=== PATIENT | male | born 1990 | race Caucasian/White ===

== ENCOUNTER 2019-07-04 15:33 | Emergency (ER) | payer OTHER ==
[~2019-07-04] VITALS: Ht 175.3 cm; Wt 79.8 kg
[2019-07-04] MEDS ORDERED: GABAPENTIN100 M2 (16:31)
== END 2019-07-04 17:54 | disposition home or self-care (01) ==
LOC: ER 15:33
DX: M54.89 Other dorsalgia (principal)

== ENCOUNTER 2019-09-19 15:45 | Outpatient (CLI) | payer OTHER ==
[~2019-09-19 15:45] MED LIST: GABAPENTIN100 M2
== END 2019-09-19 15:48 | disposition home or self-care (01) ==
LOC: RAD 15:45
PROVIDERS: ATTEND Internal Medicine
DX: M54.89 Other dorsalgia (principal)

== ENCOUNTER → 2019-09-21 09:14 | Outpatient (CLI) | payer OTHER | END | disposition home or self-care (01) | LOC: LAB 09:14 | PROVIDERS: ATTEND Internal Medicine | DX: D64.89 Other specified anemias (principal); N39.0 Urinary tract infection, site not specified; E03.8 Other specified hypothyroidism; E11.8 Type 2 diabetes mellitus with unspecified complications ==